=== PATIENT | female | born 1955 | race Caucasian/White ===

== ENCOUNTER 2016-12-02 13:47 | Emergency (ER) | payer OTHER ==
[2016-12-02 13:56] VITALS: BP 141/51; PULSE 70; RESP 16; TEMP 98.2; O2SAT 94
--- NOTE | 2016-12-02 15:45 | UCPHY ---
H & P Patient Type: Established HPI/ROS: CHIEF COMPLAINT: Fall, wrist pain, hand pain, elbow pain HISTORY OF PRESENT ILLNESS: Patient was walking her dog last night when she tripped over a curb. She landed on outstretched arms. She noted sudden onset of pain in the right wrist, right hand, right elbow. Pain was moderate. It is worse with palpation and weight-bearing. It does not radiate. It improves with rest. Some tingling in all the fingertips. No difficulty extending the wrist. No pain in the anatomic snuffbox. No head or neck injury. No chest or back injury. No injuries to the legs. Minimal improvement with ibuprofen over- the-counter. She also bought a wrist splint from pharmacy with minimal improvement. No other associated complaints or modifying factors. REVIEW OF SYSTEMS: Ten systems reviewed and are negative unless otherwise noted in the HPI EXAMINATION General Appearance: Alert, no distress Cardiovascular: Pulses normal throughout. Symmetric radial pulses are 2+. Brisk cap refill all 10 fingers Neurological: A&O, sensory symmetric including two-point sensation of both hands. Strength is 5/5 in all fingers and interossei. Skin: Warm and dry, no rash. No lacerations, abrasions or contusions. Extremities: Right upper extremity: Tenderness to palpation of the right medial wrist. No anatomic snuffbox tenderness. No forearm tenderness. There is tenderness of the distal right humerus over the lateral condyle. There is no point tenderness of the radial head. Range of motion of the fingers, wrist and elbow on the right are fully intact and symmetric. Psychiatric: Mood and affect normal DIFFERENTIAL DIAGNOSES: Including but not limited to fracture, sprain, strain, fracture dislocation, contusion, dislocation MDM: 3:40 p.m. Mechanical fall with right wrist and elbow pain. There is no snuffbox tenderness. There is pain over the right posterior elbow over the lateral humeral condyle. No point tenderness of the radius. X-rays are pending at this time. 4:20 p.m. X-rays have been read as negative. This is of the hand, wrist and elbow. I did offer and recommend a thumb spica splint for the wrist but she has declined. She also has a sling at home that she can use for comfort. We discussed weight- bearing as tolerated, anti-inflammatories, ice and rest. She is to follow up with Orthopedics next week for definitive care. Return here for worsening pain , numbness, tingling, weakness or wrist drop. She is comfortable with this plan and discharged home in stable condition, neurovascularly intact ED Precautions: Worsening pain. Erythema, edema, cyanosis, pallor, paresthesia or anesthesia. SUPERVISION: This patient was independently evaluated without direct examination by the attending physician. Case was discussed with attending physician. Smoking Status: Former smoker Constitutional: Initial Vital Signs Temperature (C) 98.2 F 12/02/16 13:51 Heart Rate 70 12/02/16 13:51 Respiratory Rate 16 12/02/16 13:51 Blood Pressure 141/51 H 12/02/16 13:51 O2 Sat (%) 94 12/02/16 13:51 O2 Delivery Mode Room Air Allergies/Adverse Reactions: Penicillins Allergy (Verified 12/02/16 13:56) SKIN RASHES,PUFFINES Home Medications: Medication Instructions Recorded CALCIUM 06/03/14 Levothyroxine 06/03/14 Vitamin D 06/03/14 Oracea 12/02/16 MDM/Departure - Depart Disposition: Home, Routine, Self-Care Clinical Impression: Right wrist sprain Qualifiers: Encounter type: initial encounter Qualified Code(s): S63.501A - Unspecified sprain of right wrist, initial encounter Sprain of elbow, right Qualifiers: Encounter type: initial encounter Qualified Code(s): S53.401A - Unspecified sprain of right elbow, initial encounter Condition: Good Instructions: Elbow Sprain (ED), Wrist Sprain (ED) Additional Instructions: Ibuprofen, ice and rest as discussed. Return to the ER or Urgent Care for worsening pain, numbness, tingling, wrist drop. Follow up with Orthopedics for definitive care Referrals: Marvin Jaimes MD [Medical Doctor] - As per Instructions - PQRS PQRS Measurement: Not applicable
== END 2016-12-02 16:30 | disposition home or self-care (01) ==
LOC: CED 13:47
DX: S63.501A Unspecified sprain of right wrist, initial encounter (principal); S53.401A Unspecified sprain of right elbow, initial encounter; M79.641 Pain in right hand; W01.0XXA Fall on same level from slipping, tripping and stumbling without subsequent striking against object, initial encounter; Y93.K1 Activity, walking an animal
CPT/HCPCS: 73080-PO; 73110-PO; 73130-PO; G0463-PO

== ENCOUNTER → 2018-09-28 | Outpatient (CLI) | payer OTHER | LOC: FIMAGING 09:54 | PROVIDERS: ATTEND Internal Medicine | DX: Z12.31 Encounter for screening mammogram for malignant neoplasm of breast (principal) ==